=== PATIENT | female | born 1940 | race Caucasian/White ===

== ENCOUNTER 2017-08-21 18:16 | Emergency (ER) | payer OTHER ==
[~2017-08-21] VITALS: Ht 152.4 cm; Wt 69.0 kg
[~2017-08-21 18:16] MED LIST: CIPR500T4 PO; LEVO75TA5 PO; METO-448 PO
[2017-08-21 18:55] VITALS: Ht 152.4 cm; Wt 69.0 kg
[2017-08-21 19:48] LABS: URINE BLOOD (Dip) POC Trace-intact (NEGATIVE)
[2017-08-21] MEDS ORDERED: morphine 4 MG/ML VIAL IV STA (19:52)
[2017-08-21] MEDS ORDERED: ONDANSETRON 4 MG INJ IV STA (19:52)
[2017-08-21] MEDS ORDERED: SOD CHLORIDE 0.9% 500 ML IV STA (19:52)
[2017-08-21 20:25] LABS: BASOPHILS % 0.3 % (0.0-2.0); EOSINOPHILS # 0.1 10^3/ul (0.0-0.5); EOSINOPHILS % 0.7 % (0.0-7.0); HEMOGLOBIN 11.3 g/dl (12.0-16.0); LYMPHOCYTES # 1.5 10^3/ul (0.8-2.9); LYMPHOCYTES % 21.3 % (15.0-51.0); MEAN CORPUSCULAR HEMOGLOBIN 29.3 pg (29.0-33.0); MEAN CORPUSCULAR HGB CONC 31.4 g/dl (32.0-37.0); MEAN CORPUSCULAR VOLUME 93.3 fl (82.0-101.0); MEAN PLATELET VOLUME 8.7 fl (7.4-10.4); MONOCYTE # 0.6 10^3/ul (0.3-0.9); MONOCYTES % 8.9 % (0.0-11.0); NEUTROPHIL # 4.9 10^3/ul (1.6-7.5); NEUTROPHILS % 68.2 % (39.0-77.0); PLATELET COUNT 204 10^3/UL (140-415); RED BLOOD COUNT 3.86 10^6/ul (4.20-5.40); WHITE BLOOD COUNT 7.2 10^3/ul (4.8-10.8)
[2017-08-21 20:31] LABS: ALBUMIN 3.9 g/dl (3.3-4.9); BILIRUBIN,INDIRECT 0.3 mg/dl (0-1.1); BILIRUBIN,TOTAL 0.3 mg/dl (0.2-1.3); CALCIUM 9.3 mg/dl (8.4-10.2); POTASSIUM 4.1 mmol/L (3.5-5.1); TOTAL PROTEIN 7.8 g/dl (6.1-8.1)
[2017-08-21 20:32] LABS: ADD UMIC YES; UR ASCORBIC ACID NEGATIVE (NEGATIVE); UR BILIRUBIN (Dip) NEGATIVE (NEGATIVE); UR BLOOD (Dip) 1+ mg/dL (NEGATIVE); UR CLARITY CLEAR (CLEAR); UR COLOR YELLOW (YELLOW); UR GLUCOSE (Dip) NEGATIVE (NEGATIVE); UR KETONES (Dip) NEGATIVE (NEGATIVE); UR LEUKOCYTE ESTERASE (Dip) 1+ Leu/ul (NEGATIVE); UR MUCUS FEW /HPF (NONE SEEN); UR NITRITE (Dip) NEGATIVE (NEGATIVE); UR RBC 4 /HPF (0-5); UR SPECIFIC GRAVITY (Dip) 1.018 (1.003-1.030); UR TOTAL PROTEIN (Dip) NEGATIVE (NEGATIVE); UR UROBILINOGEN (Dip) 1+ mg/dL (NEGATIVE)
[2017-08-21] MEDS ORDERED: LEVO125T75 PO (21:17)
[2017-08-21] MEDS ORDERED: FER325 PO (21:17)
--- NOTE | 2017-08-21 21:56 | RADRPT ---
PROCEDURE: CT Abdomen and Pelvis without contrast. CLINICAL INDICATION: Abdominal and pelvic pain. TECHNIQUE: CT scan of the abdomen and pelvis without contrast was performed. Coronal and sagittal reformatted images were obtained from the axial source images. Images were reviewed on a high-resolu [employer] PACS workstation. Total exam DLP is 886.55 mGy-cm. CTDIvol is 14.87 mGy. One or more of the f ollowing dose reduction techniques were used: Automated exposure control, adjustment of the mA and/o r kV according to patient size, use of iterative reconstruction technique. COMPARISON: CT scan of the chest dated 08/06/2016. FINDINGS: There is atelectasis at the lung bases posteriorly and in the right middle lobe. The lung bases are otherwise normal. There is no pleural effusion or pericardial effusion. The heart size is normal. Th ere is coronary artery calcification. There is elevation of the right hemidiaphragm. The liver is normal in size and attenuation. There is no focal hepatic lesion. The gallbladder and bile ducts are normal. The spleen is normal in size. There is no focal splenic lesion. Both adrenals are normal with no enlargement or mass. The pancreas is unremarkable with no mass or evidence of pancreatitis. There is no renal mass or calculus. There is no right hydronephrosis. There is mild left hydroureter onephrosis. No obstructing lesion is visualized. The abdominal aorta is not dilated. There is calcification in the aorta consistent with atherosclero sis. There is no retroperitoneal lymphadenopathy or mass. There is no pelvic lymphadenopathy or mass. The bladder and distal ureters are normal. There is a surgical clip in the left side of the cervix r egion. The appendix is well seen and appears normal. There is diverticulosis of the descending colon and sigmoid colon. There is no evidence of diverticu litis. There is diffuse thickening of the wall of the sigmoid colon. There is mild diffuse mesenteri c edema in the pelvis. There is a right inguinal hernia containing only mesenteric fat with the herniated fat measuring 3.8 x 9.1 x 10.2 cm in AP, transverse, and cranial caudal dimensions. In addition, there is a spigelian hernia in the right lower quadrant with herniated fat measuring 2.0 x 4.5 x 5.3 cm in AP, transvers e, and cranial caudal dimensions. There is an umbilical hernia with herniated fat measuring 4.1 x 5. 1 x 4.6 cm in AP, transverse, and cranial caudal dimensions. There is no herniated bowel at any of t hese sites. There is no free fluid or free gas. There are degenerative changes of the spine. There is no fracture or lytic lesion. IMPRESSION: 1. Atelectasis at the lung bases posteriorly and in the right middle lobe. 2. Coronary artery calcification. 3. Elevation of the right hemidiaphragm. 4. Mild left hydroureteronephrosis with no obstructing lesion visualized. 5. Atherosclerosis. 6. Surgical clip in the left side of the cervix region. 7. Diverticulosis of the descending colon and sigmoid colon. No evidence of diverticulitis. 8. Diffuse thickening of the wall of the sigmoid colon and mild diffuse mesenteric edema in the pel vis, nonspecific. Clinical correlation advised. 9. Multiple abdominal wall hernias containing only mesenteric fat with no herniated bowel. 10. Degenerative changes of the spine. RPTAT: QQ .Paco Victor MD, MD Date Time Electronically viewed and signed by .Paco Victor MD, on 08/21/2017 21:56 .R/
[2017-08-21] MEDS ORDERED: CIPR500T4 PO (22:20)
[2017-08-21] MEDS ORDERED: METR500T PO (22:20)
[2017-08-21] MEDS ORDERED: HYDR-906 PO (22:20)
--- NOTE | 2017-08-21 22:23 | ERD ---
ER Documentation Chief Complaint Chief Complaint Pelvic pain x 3 days,-n/v, "york when urinate"Hx uterine CA, in remission HPI This is a 77-year-old male complaining of some pelvic pain mostly located in the suprapubic region. He is complaining of some dysuria for 3-4 days. She has no nausea vomiting no diarrhea but she does have some constipation. Pain is described as sharp and constant nothing seems to make the pain worse or better. No radiation of pain. ROS All systems reviewed and are negative except as per history of present illness. Medications Home Meds Active Scripts Hydrocodone/Acetaminophen (Fellows 5-325 Tablet) 1 Each Tablet, 1 TAB PO Q6H Y for PAIN, #20 TAB Prov:CRISTINA GOMEZ DO 08/21/17 Metronidazole* (Flagyl*) 500 Mg Tablet, 500 MG PO TID for 10 Days, TAB Prov:CRISTINA GOMEZ DO 08/21/17 Ciprofloxacin Hcl* (Ciprofloxacin Hcl*) 500 Mg Tablet, 500 MG PO BID for 10 Days , TAB Prov:CRISTINA GOMEZ DO 08/21/17 Reported Medications Ferrous Sulfate* (Ferrous Sulfate*) 325 Mg Tabec, 325 MG PO BID, TAB 08/21/17 Levothyroxine Sodium* (Levothyroxine Sodium*) 125 Mcg Tablet, 125 MCG PO BEFORE BREAKFAST, #30 TAB 08/21/17 Discontinued Reported Medications Metoprolol Tartrate* (Lopressor*) 25 Mg Tab, 25 MG PO DAILY, #30 TAB 08/03/16 Levothyroxine Sodium* (Levothyroxine Sodium*) 75 Mcg Tablet, 75 MCG PO AC BREAKFAST, TAB 08/15/14 Discontinued Scripts Ciprofloxacin Hcl* (Ciprofloxacin Hcl*) 500 Mg Tablet, 500 MG PO BID for 5 Days , TAB Prov:CRISTY HARRISON 08/05/16 Allergies Allergies: Coded Allergies: No Known Drug Allergies (Unverified Allergy, Unknown, 08/21/17) PMhx/Soc History of Surgery: Yes (PICC LINE ) Anesthesia Reaction: No Hx Neurological Disorder: No Hx Respiratory Disorders: No Hx Cardiac Disorders: Yes (HTN) Hx Psychiatric Problems: No Hx Miscellaneous Medical Probl: Yes (UTERUS CA ) Hx Alcohol Use: No Hx Substance Use: No Hx Tobacco Use: No Smoking Status: Never smoker FmHx Family History: No coronary disease Physical Exam Vitals Vital Signs Date Time Temp Pulse Resp B/P Pulse Ox O2 Delivery O2 Flow Rate FiO2 08/21/17 21:08 98.6 82 13 99/54 98 Nasal Cannula 2.0 08/21/17 18:55 97.0 83 18 138/67 95 Physical Exam Const: Well-developed, well-nourished Head: Atraumatic, normocephalic Eyes: Normal Conjunctiva, PERRLA, EOMI, normal sclera, no nystagmus ENT: Normal External Ears, Nose and Mouth, moist mucus membranes. Neck: Full range of motion. No meningismus, no lymphadenopathy. Resp: Clear to auscultation bilaterally, no wheezing, rhonchi, rales Cardio: Regular rate and rhythm, no murmurs, S1 S2 present Abd: Soft, mild diffuse lower pelvic pain with moderate suprapubic, non distended. Normal bowel sounds, no guarding or rebound, no pulsitile abdominal masses or bruits Skin: No petechiae or rashes, no ecchymosis , no maculopapular rash Back: No midline or flank tenderness Ext: No cyanosis, or edema, FROM x 4, normal inspection, neurovascularly intact x 4 Neur: Awake and alert, STR 5/5 x 4, sensation intact x 4, no focal findings, cerebellum intact Psych: Normal Mood and Affect Result Diagram: 08/21/17200008/21/172000 Results 24 hrs Laboratory Tests Test 08/21/17 19:46 08/21/17 19:47 08/21/17 20:01 Bedside Urine pH (LAB) 5.5 Bedside Urine Protein (LAB) 1+ Bedside Urine Glucose (UA) Negative Bedside Urine Ketones (LAB) Negative Bedside Urine Blood Trace-intact Bedside Urine Nitrite (LAB) Negative Bedside Urine Leukocyte Esterase (L Trace Urine Color YELLOW Urine Clarity CLEAR Urine pH 5.0 Urine Specific [place] 1.018 Urine Ketones NEGATIVEmg/dL Urine Nitrite NEGATIVEmg/dL Urine Bilirubin NEGATIVEmg/dL Urine Urobilinogen 1+mg/dL Urine Leukocyte Esterase 1+Gian/ul Urine Microscopic RBC 4/HPF Urine Microscopic WBC 10/HPF Urine Mucus FEW/HPF Urine Hemoglobin 1+mg/dL Urine Glucose NEGATIVEmg/dL Urine Total Protein NEGATIVEmg/dl White Blood Count 7.210^3/ul Red Blood Count 3.8610^6/ul Hemoglobin 11.3g/dl Hematocrit 36.0% Mean Corpuscular Volume 93.3fl Mean Corpuscular Hemoglobin 29.3pg Mean Corpuscular Hemoglobin Concent 31.4g/dl Red Cell Distribution Width 13.0% Platelet Count 07536^3/UL Mean Platelet Volume 8.7fl Neutrophils % 68.2% Lymphocytes % 21.3% Monocytes % 8.9% Eosinophils % 0.7% Basophils % 0.3% Nucleated Red Blood Cells % 0.0/100WBC Neutrophils # 4.910^3/ul Lymphocytes # 1.510^3/ul Monocytes # 0.610^3/ul Eosinophils # 0.110^3/ul Basophils # 0.010^3/ul Nucleated Red Blood Cells # 0.010^3/ul Sodium Level 136mmol/L Potassium Level 4.1mmol/L Chloride Level 98mmol/L Carbon Dioxide Level 29mmol/L Anion Gap 13 Blood Urea Nitrogen 22mg/dl Creatinine 1.00mg/dl Glucose Level 111mg/dl Calcium Level 9.3mg/dl Total Bilirubin 0.3mg/dl Direct Bilirubin 0.00mg/dl Indirect Bilirubin 0.3mg/dl Aspartate Amino Transf (AST/SGOT) 40IU/L Alanine Aminotransferase (ALT/SGPT) 31IU/L Alkaline Phosphatase 181IU/L Total Protein 7.8g/dl Albumin 3.9g/dl Globulin 3.90g/dl Albumin/Globulin Ratio 1.00 Current Medications Medications (Trade) Dose Ordered Sig/Osorio Route PRN Reason Start Time Stop Time Status Last Admin Dose Admin Sodium Chloride (NS) 500 ml @ 500 mls/hr Q1H STAT IV 08/21/17 19:52 08/21/17 20:51 DC 08/21/17 20:17 Morphine Sulfate (morphine) 4 mg ONCE STAT IV 08/21/17 19:52 08/21/17 19:53 DC 08/21/17 20:16 Ondansetron HCl (Zofran Inj) 4 mg ONCE STAT IV 08/21/17 19:52 08/21/17 19:53 DC 08/21/17 20:16 Procedures/MDM PROCEDURE: CT Abdomen and Pelvis without contrast. CLINICAL INDICATION: Abdominal and pelvic pain. TECHNIQUE: CT scan of the abdomen and pelvis without contrast was performed. Coronal and sagittal reformatted images were obtained from the axial source images. Images were reviewed on a high-resolution PACS workstation. Total exam DLP is 886.55 mGy-cm. CTDIvol is 14.87 mGy. One or more of the following dose reduction techniques were used: Automated exposure control, adjustment of the mA and/or kV according to patient size, use of iterative reconstruction technique. COMPARISON: CT scan of the chest dated 08/06/2016. FINDINGS: There is atelectasis at the lung bases posteriorly and in the right middle lobe. The lung bases are otherwise normal. There is no pleural effusion or pericardial effusion. The heart size is normal. There is coronary artery calcification. There is elevation of the right hemidiaphragm. The liver is normal in size and attenuation. There is no focal hepatic lesion. The gallbladder and bile ducts are normal. The spleen is normal in size. There is no focal splenic lesion. Both adrenals are normal with no enlargement or mass. The pancreas is unremarkable with no mass or evidence of pancreatitis. There is no renal mass or calculus. There is no right hydronephrosis. There is mild left hydroureteronephrosis. No obstructing lesion is visualized. The abdominal aorta is not dilated. There is calcification in the aorta consistent with atherosclerosis. There is no retroperitoneal lymphadenopathy or mass. There is no pelvic lymphadenopathy or mass. The bladder and distal ureters are normal. There is a surgical clip in the left side of the cervix region. The appendix is well seen and appears normal. There is diverticulosis of the descending colon and sigmoid colon. There is no evidence of diverticulitis. There is diffuse thickening of the wall of the sigmoid colon. There is mild diffuse mesenteric edema in the pelvis. There is a right inguinal hernia containing only mesenteric fat with the herniated fat measuring 3.8 x 9.1 x 10.2 cm in AP, transverse, and cranial caudal dimensions. In addition, there is a spigelian hernia in the right lower quadrant with herniated fat measuring 2.0 x 4.5 x 5.3 cm in AP, transverse, and cranial caudal dimensions. There is an umbilical hernia with herniated fat measuring 4.1 x 5.1 x 4.6 cm in AP, transverse, and cranial caudal dimensions. There is no herniated bowel at any of these sites. There is no free fluid or free gas. There are degenerative changes of the spine. There is no fracture or lytic lesion. IMPRESSION: 1. Atelectasis at the lung bases posteriorly and in the right middle lobe. 2. Coronary artery calcification. 3. Elevation of the right hemidiaphragm. 4. Mild left hydroureteronephrosis with no obstructing lesion visualized. 5. Atherosclerosis. 6. Surgical clip in the left side of the cervix region. 7. Diverticulosis of the descending colon and sigmoid colon. No evidence of diverticulitis. 8. Diffuse thickening of the wall of the sigmoid colon and mild diffuse mesenteric edema in the pelvis, nonspecific. Clinical correlation advised. 9. Multiple abdominal wall hernias containing only mesenteric fat with no herniated bowel. 10. Degenerative changes of the spine. RPTAT: QQ .Paco Victor MD, MD Date Time Electronically viewed and signed by .Paco Victor MD, MD on 08/21/2017 21:56 .R/ CC: CRISTINA GOMEZ DO Patient has UTI will cover with Cipro will add Flagyl in case the pain is from a colitis from the sigmoid region. Blood work is relatively unremarkable no acute pathology on CT requiring admission to hospital Departure Diagnosis: Primary Impression: UTI (urinary tract infection) Urinary tract infection type: acute cystitis Hematuria presence: without hematuria Qualified Code: N30.00 - Acute cystitis without hematuria Additional Impression: Colitis Condition: Stable Patient Instructions: Understanding Urinary Tract Infections (UTIs) CRISTINA GOMEZ DO Aug 21, 2017 22:23
[2017-08-21 22:34] VITALS: BP 119/60; PULSE 82; RESP 22; TEMP 98.6
== END 2017-08-21 22:36 | disposition home or self-care (01) ==
LOC: E/R 18:16
DX: N30.00 Acute cystitis without hematuria (principal); K52.9 Noninfective gastroenteritis and colitis, unspecified; I10 Essential (primary) hypertension; Z85.42 Personal history of malignant neoplasm of other parts of uterus
CPT/HCPCS: 36415; 74176; 80053; 81001; 85025; 87086; 96374; 96375; J2270; J2405; J7040; Z7502; 81003

== ENCOUNTER 2018-04-14 23:27 | Emergency (ER) | END 2018-04-15 05:01 | disposition home or self-care (01) ==